=== PATIENT | female | born 2000 ===

== ENCOUNTER → 2023-11-03 | Outpatient (REF) | LOC: M EMP 09:34 | PROVIDERS: ATTEND Family Medicine | DX: Z11.52 Encounter for screening for COVID-19 (principal) ==

== ENCOUNTER → 2024-01-14 | Outpatient (REF) | LOC: M EMP 13:26 | PROVIDERS: ATTEND Family Medicine | DX: Z11.52 Encounter for screening for COVID-19 (principal); Z20.828 Contact with and (suspected) exposure to other viral communicable diseases ==

== ENCOUNTER → 2024-01-14 | Outpatient (REF) | LOC: M EMP 10:09 | PROVIDERS: ATTEND Family Medicine | DX: Z11.52 Encounter for screening for COVID-19 (principal) ==